=== PATIENT | female | born 1995 | race Caucasian/White ===

== ENCOUNTER 2022-06-02 05:55 | Inpatient (IN) | payer OTHER ==
[2022-06-02] MEDS ORDERED: ELECTROLYTE-148 SOLN 1,000 ML IV SCH (08:00)
[2022-06-02] MEDS ORDERED: AMPICILLIN - 2 GM in SODIUM CHLORIDE 100 ML IVPB ONE (08:01)
[2022-06-02] MEDS ORDERED: AMPICILLIN SODIUM 2 GM VIAL ONE (08:29)
[2022-06-02 09:21] VITALS: BMI 29.2
[2022-06-02 09:23] LABS: BASO % 0.2 % (0-2.0); EOS % 0.6 % (0-4.5); HEMATOCRIT 27.1 % (32.4-45.2); HEMOGLOBIN 8.4 GM/dL (10.7-15.3); MCHC 30.8 g/dl (32.0-36.0); MEAN CELL VOLUME 63.9 fl (80-96); MEAN PLT VOLUME 8.8 fl (7.5-11.1); MONO % 5.7 % (3.8-10.2); NEUT % 67.5 % (42.8-82.8); PLATELET COUNT 101 10^3/uL (134-434); RBC 4.25 M/mm3 (3.60-5.2); RDW 20.4 % (11.6-15.6); WHITE BLOOD COUNT 8.6 K/mm3 (4.0-10.0)
[2022-06-02 09:24] LABS: INR 0.96 (0.83-1.09)
[2022-06-02 09:27] LABS: ACTIVATED PTT 25.8 SECONDS (25.2-36.5)
[2022-06-02 09:39] LABS: MCH 19.7 pg (25.7-33.7)
[2022-06-02 09:46] LABS: CREATININE 0.4 mg/dL (0.55-1.3)
[2022-06-02 09:48] LABS: CALCIUM 8.4 mg/dL (8.5-10.1)
[2022-06-02 09:49] LABS: BLOOD UREA NITROGEN 10.4 mg/dL (7-18)
[2022-06-02 10:51] LABS: ANISOCYTOSIS 3+; MACROCYTOSIS 0; PLATELET ESTIMATE DECREASED
[2022-06-02] MEDS ORDERED: OXYTOCIN 20 UNITS in 0.9% NS 20 UNIT/1,000 ML INFUS.BAG IV ONE (11:09)
[2022-06-02] MEDS ORDERED: LIDOCAINE HCL 1% PRESERVATIVE FREE - 30ML VIAL ONE (11:09)
[2022-06-02] MEDS ORDERED: AMPICILLIN SODIUM 1 GM VIAL ONE (11:22)
[2022-06-02] MEDS: AMPICILLIN - 1 GM in SODIUM CHLORIDE 100 ML IVPB SCH ×2 (11:40→16:20)
[2022-06-02] MEDS ORDERED: ACETAMINOPHEN 325 MG TABLET (FP) PO PRN (15:50)
[2022-06-02] MEDS ORDERED: BENZOCAINE 28 GM HEMORRHOIDAL OINTMENT TP PRN (15:50)
[2022-06-02] MEDS ORDERED: WITCH HAZEL 50% (TUCKS) 40 PAD/JAR PAD TP PRN (15:50)
[2022-06-02] MEDS ORDERED: BISACODYL 10 MG SUPP.RECT RC PRN (15:50)
[2022-06-02] MEDS ORDERED: BENZOCAINE 20% 57 GM BOTTLE TP PRN (15:50)
[2022-06-02] MEDS ORDERED: MISOPROSTOL 200 MCG TABLET PV ONE (15:51)
[2022-06-02] MEDS ORDERED: OXYTOCIN 20 UNITS in 0.9% NS 20 UNIT/1,000 ML INFUS.BAG IV SCH (16:00)
[2022-06-02] MEDS: IBUPROFEN 600 MG TABLET (FP) PO PRN (21:25)
[2022-06-02] MEDS: SENNOSIDES/DOCUSATE COMBO (SENNA PLUS) TABLET (UD) PO PRN (21:25)
[2022-06-03 04:14] VITALS: RESP 18
[2022-06-03 08:36] LABS: BASO % 0.2 % (0-2.0); EOS % 0.1 % (0-4.5); LYMPH % 20.8 % (8-40); MCHC 29.8 g/dl (32.0-36.0); MEAN CELL VOLUME 64.4 fl (80-96); MEAN PLT VOLUME 9.6 fl (7.5-11.1); MONO % 4.5 % (3.8-10.2); NEUT % 74.4 % (42.8-82.8); PLATELET COUNT 105 10^3/uL (134-434); RBC 3.42 M/mm3 (3.60-5.2); RDW 19.8 % (11.6-15.6); WHITE BLOOD COUNT 13.5 K/mm3 (4.0-10.0)
[2022-06-03 08:38] LABS: MCH 19.2 pg (25.7-33.7)
[2022-06-03] MEDS: IBUPROFEN 600 MG TABLET (FP) PO PRN ×2 (08:54→19:54)
[2022-06-03 08:57] LABS: HEMOGLOBIN 6.6 GM/dL (10.7-15.3)
[2022-06-03] MEDS: FERROUS SO4 325 MG TABLET (FP) PO SCH ×2 (16:10→21:52)
[2022-06-03] MEDS: SENNOSIDES/DOCUSATE COMBO (SENNA PLUS) TABLET (UD) PO PRN (19:54)
[2022-06-03 20:05] LABS: HEMATOCRIT 23.3 % (32.4-45.2); HEMOGLOBIN 7.1 GM/dL (10.7-15.3); MCHC 30.6 g/dl (32.0-36.0); MEAN PLT VOLUME 8.7 fl (7.5-11.1); PLATELET COUNT 125 10^3/uL (134-434); RBC 3.63 M/mm3 (3.60-5.2); RDW 20.1 % (11.6-15.6)
[2022-06-03 20:06] LABS: MCH 19.6 pg (25.7-33.7)
[2022-06-03] MEDS ORDERED: FERROUS SO4 325 MG TABLET (FP) PO SCH (22:00)
[2022-06-04] MEDS: FERROUS SO4 325 MG TABLET (FP) PO SCH (09:17)
[2022-06-04 09:25] VITALS: BP 109/69; PULSE 72; TEMP 99.1
== END 2022-06-04 18:55 | disposition home or self-care (01) | DRG 560 ==
LOC: JDEL 05:55 → JLDR 07:45 → J3W 17:20
PROVIDERS: ADMIT Student in an Organized Health Care Education/Training Program; ATTEND Student in an Organized Health Care Education/Training Program
PROC: 0HQ9XZZ Repair Perineum Skin, External Approach (ICD-10-PCS; principal; 2022-06-02)
PROC: 10E0XZZ Delivery of Products of Conception, External Approach (ICD-10-PCS; 2022-06-02)
PROC: 0W8NXZZ Division of Female Perineum, External Approach (ICD-10-PCS; 2022-06-02)
DX: O70.9 Perineal laceration during delivery, unspecified (principal); O99.013 Anemia complicating pregnancy, third trimester; O99.820 Streptococcus B carrier state complicating pregnancy; Z3A.40 40 weeks gestation of pregnancy; Z37.0 Single live birth
CPT/HCPCS: 36415; 59409; 80048; 85025; 85027; 85610; 85730; 86780; 86850; 86900; 86901; C9803-CS; U0003; U0005

== ENCOUNTER 2023-08-02 13:36 | Emergency (ER) | payer OTHER ==
[2023-08-02 13:44] VITALS: BMI 31.1
[2023-08-02 15:41] LABS: BASO % 0.6 % (0-2.0); EOS % 1.1 % (0-4.5); HEMATOCRIT 34.9 % (32.4-45.2); HEMOGLOBIN 11.4 GM/dL (10.7-15.3); LYMPH % 31.2 % (8-40); MCH 23.1 pg (25.7-33.7); MCHC 32.6 g/dl (32.0-36.0); MEAN CELL VOLUME 70.9 fl (80-96); MEAN PLT VOLUME 8.8 fl (7.5-11.1); MONO % 6.7 % (3.8-10.2); NEUT % 60.4 % (42.8-82.8); PLATELET COUNT 181 10^3/uL (134-434); RBC 4.92 M/mm3 (3.60-5.2); RDW 16.7 % (11.6-15.6); WHITE BLOOD COUNT 10.6 K/mm3 (4.0-10.0)
[2023-08-02 16:07] LABS: POTASSIUM 3.5 mmol/L (3.5-5.1)
[2023-08-02 16:09] LABS: BLOOD UREA NITROGEN 7.5 mg/dL (7-18); CALCIUM 8.7 mg/dL (8.5-10.1)
[2023-08-02 16:10] LABS: ALBUMIN 3.2 g/dl (3.4-5.0)
[2023-08-02 16:13] LABS: CREATININE 0.4 mg/dL (0.55-1.3)
[2023-08-02 16:14] LABS: BILIRUBIN,TOTAL 0.3 mg/dL (0.2-1); TOT PROT 7.2 g/dl (6.4-8.2)
[2023-08-02 18:21] LABS: EPI CELLS >36 /uL (0-25.1); HYALINE CASTS 1 /uL (0-3.1); PH,URINE 6.5 (5.0-8.0); URINE APPEARANCE CLOUDY; URINE BACTERIA 2315 /uL (0-1359); URINE BILIRUBIN NEGATIVE (NEGATIVE); URINE COLOR YELLOW; URINE GLUCOSE (UA) NEGATIVE (NEGATIVE); URINE KETONE TRACE (NEGATIVE); URINE LEUK ESTERASE TRACE (NEGATIVE); URINE NITRITE NEGATIVE (NEGATIVE); URINE PROTEIN 2+ (NEGATIVE); URINE WBC 73 /uL (0-25.8)
[2023-08-02 19:50] LABS: URINE RBC 91.4 /uL (0-23.9)
[2023-08-02 19:51] LABS: YEAST NONE SEEN (NEGATIVE)
[2023-08-02 20:14] VITALS: BP 121/79; PULSE 82; RESP 18; TEMP 98.3
== END 2023-08-02 20:24 | disposition home or self-care (01) ==
LOC: JER 13:36
DX: O20.9 Hemorrhage in early pregnancy, unspecified (principal); O26.891 Other specified pregnancy related conditions, first trimester; R10.32 Left lower quadrant pain; Z3A.09 9 weeks gestation of pregnancy
CPT/HCPCS: 36415; 76817-TC; 80053; 81003; 84702; 85025; 86850; 86900; 86901; 87086; 99284-25

== ENCOUNTER 2024-02-27 04:40 | Inpatient (IN) | payer OTHER ==
[2024-02-27] MEDS: ELECTROLYTE-148 SOLN 1,000 ML IV SCH (07:30)
[2024-02-27] MEDS ORDERED: AMPICILLIN SODIUM 2 GM VIAL ONE (07:46)
[2024-02-27] MEDS: AMPICILLIN - 2 GM in SODIUM CHLORIDE 100 ML IVPB ONE (07:55)
[2024-02-27 08:31] LABS: BASO % 0.4 % (0-2.0); EOS % 0.5 % (0-4.5); HEMATOCRIT 30.7 % (32.4-45.2); HEMOGLOBIN 9.3 GM/dL (10.7-15.3); LYMPH % 24.2 % (8-40); MCH 21.2 pg (25.7-33.7); MCHC 30.3 g/dl (32.0-36.0); MEAN PLT VOLUME 9.7 fl (7.5-11.1); MONO % 4.4 % (3.8-10.2); NEUT % 70.5 % (42.8-82.8); RBC 4.38 M/mm3 (3.60-5.2); RDW 29.8 % (11.6-15.6); WHITE BLOOD COUNT 8.4 K/mm3 (4.0-10.0)
[2024-02-27 08:35] LABS: INR 1.01 (0.83-1.09); PROTHROMBIN TIME (PATIENT) 11.4 SEC (9.7-13.0)
[2024-02-27 08:36] LABS: PLATELET COUNT 133 10^3/uL (134-434)
[2024-02-27 08:38] LABS: ACTIVATED PTT 29.6 SECONDS (25.2-36.5)
[2024-02-27 08:44] VITALS: BMI 32.7
[2024-02-27 08:59] LABS: CALCIUM 8.8 mg/dL (8.5-10.1)
[2024-02-27 09:00] LABS: BLOOD UREA NITROGEN 12.6 mg/dL (7-18)
[2024-02-27 09:03] LABS: CREATININE 0.5 mg/dL (0.55-1.3)
[2024-02-27 09:17] LABS: ANISOCYTOSIS 2+; MACROCYTOSIS 1+
[2024-02-27] MEDS ORDERED: AMPICILLIN SODIUM 1 GM VIAL ONE ×3 (11:06→18:55)
[2024-02-27] MEDS: AMPICILLIN - 1 GM in SODIUM CHLORIDE 100 ML IVPB SCH (11:07)
[2024-02-27] MEDS ORDERED: OXYTOCIN 20 UNITS in 0.9% NS 20 UNIT/1,000 ML INFUS.BAG IV ONE (18:13)
[2024-02-27] MEDS: OXYTOCIN 30 UNITS in 0.9% NS 30 UNIT/500 ML INFUS.BAG IVPB SCH (18:55)
[2024-02-27] MEDS: METHYLERGONOVINE MALEATE 0.2 MG/1 ML AMP IM ONE ×2 (19:23→21:10)
[2024-02-27] MEDS: OXYTOCIN 20 UNITS in 0.9% NS 20 UNIT/1,000 ML INFUS.BAG IV SCH (19:25)
[2024-02-27 19:52] LABS: CORD BASE EXCESS -2.3 mmol/L (0-2); CORD HCO3 21.4 mmHg (20-29); CORD PCO2 33.9 mmHg (30-78); CORD pH 7.418 (7.14-7.44)
[2024-02-27 19:54] LABS: CORD BASE EXCESS -2.6 mmol/L (0-2); CORD HCO3 23.3 mmHg (20-29); CORD PCO2 44.3 mmHg (30-78); CORD pH 7.338 (7.14-7.44)
[2024-02-27] MEDS ORDERED: ACETAMINOPHEN 325 MG TABLET (FP) ONE (20:03)
[2024-02-27] MEDS: ACETAMINOPHEN 325 MG TABLET (FP) PO PRN (20:05)
[2024-02-27] MEDS ORDERED: WITCH HAZEL 50% (TUCKS) 40 PAD/JAR PAD TP PRN (20:18)
[2024-02-27] MEDS ORDERED: oxyCODONE HCL 5 MG TABLET PO PRN (20:18)
[2024-02-27] MEDS ORDERED: BENZOCAINE 20% 57 GM BOTTLE TP PRN (20:18)
[2024-02-27] MEDS ORDERED: BENZOCAINE 28 GM HEMORRHOIDAL OINTMENT TP PRN (20:18)
[2024-02-27] MEDS ORDERED: METHYLERGONOVINE MALEATE 0.2 MG/1 ML AMP IM PRN (20:18)
[2024-02-27] MEDS ORDERED: BISACODYL 10 MG SUPP.RECT RC PRN (20:18)
[2024-02-27 23:33] VITALS: RESP 18
[2024-02-28] MEDS: IBUPROFEN 600 MG TABLET (FP) PO PRN (05:35)
[2024-02-28 06:22] LABS: BASO % 0.7 % (0-2.0); EOS % 0.5 % (0-4.5); HEMOGLOBIN 7.4 GM/dL (10.7-15.3); LYMPH % 26.5 % (8-40); MCH 21.3 pg (25.7-33.7); MCHC 29.7 g/dl (32.0-36.0); MEAN CELL VOLUME 71.8 fl (80-96); MEAN PLT VOLUME 10.5 fl (7.5-11.1); MONO % 3.9 % (3.8-10.2); NEUT % 68.4 % (42.8-82.8); PLATELET COUNT 158 10^3/uL (134-434); RBC 3.49 M/mm3 (3.60-5.2); RDW 29.7 % (11.6-15.6); WHITE BLOOD COUNT 9.6 K/mm3 (4.0-10.0)
[2024-02-28] MEDS: FERROUS SO4 325 MG TABLET (FP) PO SCH (09:23)
[2024-02-28] MEDS: PRENATAL VITAMINS W/ FOLIC ACID TABLET (FP) PO SCH (09:23)
[2024-02-28] MEDS: DOCUSATE SODIUM 100 MG CAPSULE (FP) PO PRN (09:23)
[2024-02-28] MEDS: SENNOSIDES/DOCUSATE COMBO (SENNA PLUS) TABLET (UD) PO PRN (21:27)
[2024-02-29 07:13] LABS: BASO % 0.5 % (0-2.0); EOS % 1.4 % (0-4.5); HEMATOCRIT 22.5 % (32.4-45.2); LYMPH % 37.4 % (8-40); MCH 21.9 pg (25.7-33.7); MCHC 29.9 g/dl (32.0-36.0); MEAN CELL VOLUME 73.1 fl (80-96); MEAN PLT VOLUME 10.1 fl (7.5-11.1); MONO % 4.2 % (3.8-10.2); NEUT % 56.5 % (42.8-82.8); PLATELET COUNT 123 10^3/uL (134-434); RBC 3.07 M/mm3 (3.60-5.2); RDW 30.4 % (11.6-15.6); WHITE BLOOD COUNT 8.1 K/mm3 (4.0-10.0)
[2024-02-29 07:32] LABS: HEMOGLOBIN 6.7 GM/dL (10.7-15.3)
[2024-02-29 11:37] VITALS: PULSE 79; TEMP 98.2
[2024-02-29 11:38] VITALS: BP 123/76
[2024-02-29 12:00] LABS: BASO % 0.4 % (0-2.0); EOS % 0.9 % (0-4.5); HEMATOCRIT 22.1 % (32.4-45.2); LYMPH % 21.7 % (8-40); MCHC 30.3 g/dl (32.0-36.0); MEAN CELL VOLUME 72.5 fl (80-96); MEAN PLT VOLUME 9.5 fl (7.5-11.1); MONO % 4.3 % (3.8-10.2); NEUT % 72.7 % (42.8-82.8); PLATELET COUNT 127 10^3/uL (134-434); RBC 3.05 M/mm3 (3.60-5.2); RDW 30.8 % (11.6-15.6); WHITE BLOOD COUNT 8.4 K/mm3 (4.0-10.0)
[2024-02-29 12:04] LABS: HEMOGLOBIN 6.7 GM/dL (10.7-15.3)
== END 2024-02-29 15:00 | disposition home or self-care (01) | DRG 807 ==
LOC: JDEL 04:40 → JLDR 07:15 → J3W 22:48
PROVIDERS: ADMIT Obstetrics & Gynecology; ATTEND Obstetrics & Gynecology
PROC: 10E0XZZ Delivery of Products of Conception, External Approach (ICD-10-PCS; principal; 2024-02-27)
PROC: 0HQ9XZZ Repair Perineum Skin, External Approach (ICD-10-PCS; 2024-02-27)
DX: O70.0 First degree perineal laceration during delivery (principal); Z37.0 Single live birth; Z3A.39 39 weeks gestation of pregnancy
CPT/HCPCS: 36415; 36600; 59025; 71046-TC-FY; 80048; 82803; 85025; 85610; 85730; 86780; 86803; 86850; 86900; 86901; 86922; 87340